=== PATIENT | female | born 1970 | race American Indian/Alaskan Native ===

== ENCOUNTER 2020-02-02 13:58 | Emergency (ER) | payer OTHER ==
[2020-02-02] MEDS ORDERED: Acetaminophen/HYDROcodone 325-5 MG Tab PO ONE (14:45)
[2020-02-02] MEDS ORDERED: Gabapentin 300 MG Cap PO ONE (14:45)
--- NOTE | 2020-02-02 15:13 | EDM.PDOC ---
ED HPI GENERAL MEDICAL PROBLEM - General Chief Complaint: Skin Complaint Stated Complaint: INFECTION IN R TOE Time Seen by Provider: 02/02/20 14:46 Source of Information: Reports: Patient, Police History Limitations: Reports: No Limitations - History of Present Illness INITIAL COMMENTS - FREE TEXT/NARRATIVE: pt has a history of a diabetic ulcer on her rt small toe. She is on 2 different antibiotics clindomycin an doxy. The nurse was concerned because she has more pain. Onset: Gradual, Other (pt is presently off of her gabapentin. ) Duration: Hour(s): Location: Reports: Lower Extremity, Right Associated Symptoms: Reports: No Other Symptoms Right Lower Foot Pain Score (Numeric/FACES): 6 - Related Data Allergies Allergy/AdvReac Type Severity Reaction Status Date / Time codeine Allergy Hives Verified 02/02/20 14:20 ibuprofen Allergy Other Verified 02/02/20 14:20 morphine Allergy Swelling Verified 02/02/20 14:20 Penicillins Allergy Hives Verified 02/02/20 14:20 Sulfa (Sulfonamide Allergy Hives Verified 02/02/20 14:35 Antibiotics) Home Meds: Home Meds Clindamycin HCl 300 mg PO TID 02/02/20 [History] DULoxetine [Cymbalta] 60 mg PO DAILY 02/02/20 [History] Doxycycline [Vibramycin] 100 mg PO DAILY 02/02/20 [History] Insulin Aspart [NovoLOG] 0 unit SUBCUT ASDIRECTED 02/02/20 [History] Insulin Glargine,Hum.Rec.Anlog [Lantus Solostar] 10 unit SUBCUT BEDTIME 02/02/20 [History] Lactobacillus Acidophilus [Acidophilus] 1 each PO DAILY 02/02/20 [History] Lisinopril/Hydrochlorothiazide [Lisinopril-Hctz 20-12.5 mg Tab] 1 tab PO DAILY 02/02/20 [History] Omeprazole 20 mg PO BID 02/02/20 [History] Past Medical History Cardiovascular History: Reports: Hypertension Genitourinary History: Reports: Renal Calculus EAR FLAP BINDER History: Reports: Musculoskeletal History: Reports: Arthritis Neurological History: Reports: Concussion, Migraines Psychiatric History: Reports: Anxiety, Depression Endocrine/Metabolic History: Reports: Diabetes, Type II Dermatologic History: Reports: Other (See Below) Other Dermatologic History: diabetic ulcer - Infectious Disease History Infectious Disease History: Reports: Chicken Pox, Measles - Past Surgical History GI Surgical History: Reports: Appendectomy, Cholecystectomy Neurological Surgical History: Reports: Spinal Fusion, Other (See Below) Other Neurological Surgeries/Procedures: fusion x2 Social & Family History - Tobacco Use Tobacco Use Status *Q: Light Tobacco User Years of Tobacco use: 30 Packs/Tins Daily: 0.5 - Caffeine Use Caffeine Use: Reports: Tea - Recreational Drug Use Recreational Drug Use: No ED ROS GENERAL - Review of Systems Review Of Systems: See Below Constitutional: Reports: No Symptoms HEENT: Reports: No Symptoms Respiratory: Reports: No Symptoms Cardiovascular: Reports: No Symptoms Endocrine: Reports: No Symptoms GI/Abdominal: Reports: No Symptoms : Reports: No Symptoms Musculoskeletal: Reports: Other ( increased pain in the rt foot. ) Skin: Reports: No Symptoms ED EXAM, SKIN/RASH Exam: See Below Text/Narrative:: pt arrived with a diabetic ulcer on the rt small toe. She is complaining of increased pain. Exam Limited By: No Limitations General Appearance: Alert, Anxious, Mild Distress Ears: Normal TMs Nose: Normal Inspection Throat/Mouth: Normal Inspection Head: Atraumatic Neck: Normal Inspection Respiratory/Chest: No Respiratory Distress Cardiovascular: Regular Rate, Rhythm GI/Abdominal: Soft, Non-Tender (Female) Exam: Deferred Rectal (Female) Exam: Deferred Back Exam: Normal Inspection Extremities: Other (pt has an ulcer on the rt small toe. This does not look red there has been a very small amount of drainage. It is tender over the dorsum of the foot proximal from the toe.) Neurological: Alert, Oriented, Normal Cognition Psychiatric: Depressed Mood Course - Vital Signs Last Recorded V/S: Last Vital Signs Temp 36.4 C 02/02/20 14:15 Pulse 87 02/02/20 14:15 Resp 16 02/02/20 14:15 BP 162/102 H 02/02/20 14:15 Pulse Ox 99 02/02/20 14:15 - Orders/Labs/Meds Orders: Active Orders 24 hr Category Date Time Status Foot 2V Rt [CR] Stat Exams 02/02/20 14:44 Taken Labs: Laboratory Tests 02/02/20 02/02/20 Range/Units 14:55 14:55 WBC 7.9 (4.5-11.0) K/uL RBC 5.56 H (3.30-5.50) M/uL Hgb 16.1 H (12.0-15.0) g/dL Hct 47.2 (36.0-48.0) % MCV 85 (80-98) fL MCH 29 (27-31) pg MCHC 34 (32-36) % Plt Count 290 (150-400) K/uL Neut % (Auto) 73 H (36-66) % Lymph % (Auto) 21 L (24-44) % Mower % (Auto) 5 (2-6) % Eos % (Auto) 1 L (2-4) % Baso % (Auto) 1 (0-1) % Sodium 136 L (140-148) mmol/L Potassium 5.0 (3.6-5.2) mmol/L Chloride 100 (100-108) mmol/L Carbon Dioxide 29 (21-32) mmol/L Anion Gap 12.0 (5.0-14.0) mmol/L BUN 17 (7-18) mg/dL Creatinine 1.2 H (0.6-1.0) mg/dL Est Cr Clr Drug Dosing 56.58 mL/min Estimated GFR (MDRD) 48 L (>60) Glucose 198 H (74-106) mg/dL Calcium 9.5 (8.5-10.1) mg/dL Meds: Medications Discontinued Medications Generic Name Dose Route Start Last Admin Trade Name Freq PRN Reason Stop Dose Admin Hydrocodone Bitart/Acetaminophen 1 tab 02/02/20 14:45 02/02/20 15:02 [place] 325-5 Mg PO 02/02/20 14:46 1 tab ONETIME ONE Administration Gabapentin 300 mg 02/02/20 14:45 02/02/20 15:02 Neurontin PO 02/02/20 14:46 300 mg ONETIME ONE Administration - Re-Assessments/Exams Free Text/Narrative Re-Assessment/Exam: 02/02/20 15:52 pt has bs of 198. Her other labs look good. An xray of the foot does not show alot of fide destruction. Departure - Departure Time of Disposition: 15:43 Disposition: Home, Self-Care 01 Condition: Fair Clinical Impression: Diabetic ulcer of toe - Discharge Information Referrals: PCP,None [Primary Care Provider] - Forms: ED Department Discharge Care Plan Goals: continue doxycyline and clindomycin, for pain resume gabapentin 600mg tid, push fluids, continue other meds, pepcid 20 mg bid for 1 week, continue prilosec. Sepsis Event Note (ED) - Evaluation Sepsis Screening Result: No Definite Risk - Focused Exam Vital Signs: Vital Signs Temp Pulse Resp BP Pulse Ox 02/02/20 14:15 36.4 C 87 16 162/102 H 99 02/02/20 14:06 36.4 C 87 16 162/102 H 99 - My Orders Last 24 Hours: My Active Orders 02/02/20 14:44 Foot 2V Rt [CR] Stat - Assessment/Plan Last 24 Hours: My Active Orders 02/02/20 14:44 Foot 2V Rt [CR] Stat
--- NOTE | 2020-02-02 15:54 | CR ---
Foot 2V Rt CLINICAL HISTORY: Rule out osteomyelitis FINDINGS: Patient has had a septation of the first distal phalanx. There are severe degenerative change with bunion formation and hallux valgus. There is been previous fracture and surgery of the second and third metatarsals. There are hammertoe deformities. No definite destructive lesions are identified. 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
== END 2020-02-02 16:30 | disposition home or self-care (01) ==
LOC: JP.ED 13:58
DX: E11.621 Type 2 diabetes mellitus with foot ulcer (principal); L97.519 Non-pressure chronic ulcer of other part of right foot with unspecified severity; I10 Essential (primary) hypertension; F41.9 Anxiety disorder, unspecified; F32.9 Major depressive disorder, single episode, unspecified; F17.210 Nicotine dependence, cigarettes, uncomplicated; Z88.5 Allergy status to narcotic agent; Z88.6 Allergy status to analgesic agent; Z88.0 Allergy status to penicillin; Z88.2 Allergy status to sulfonamides; Z79.4 Long term (current) use of insulin; Z79.899 Other long term (current) drug therapy
CPT/HCPCS: 36415; 73620-26-RT; 73620-RT; 80048; 85025; 99283-25; A9270-GY